=== PATIENT | female | born 1970 | race Two or more races ===

== ENCOUNTER 2019-04-15 06:46 | Emergency (ER) | payer OTHER ==
[~2019-04-15] VITALS: Ht 160 cm; Wt 72.6 kg
== END 2019-04-15 11:11 | disposition home or self-care (01) ==
LOC: ER 06:46
DX: B34.9 Viral infection, unspecified (principal); R05 Cough

== ENCOUNTER 2019-11-29 20:49 | Emergency (ER) | payer OTHER ==
[~2019-11-29] VITALS: Ht 160 cm; Wt 73.0 kg
== END 2019-11-29 22:09 | disposition home or self-care (01) ==
LOC: ER 20:49
DX: K00.0 Anodontia (principal); K08.89 Other specified disorders of teeth and supporting structures

== ENCOUNTER 2020-01-14 15:57 | Emergency (ER) | payer OTHER ==
[~2020-01-14] VITALS: Ht 160 cm; Wt 73.9 kg
[2020-01-14] MEDS ORDERED: DRISTAN15 ML (16:34)
== END 2020-01-14 19:11 | disposition home or self-care (01) ==
LOC: ER 15:57
DX: J45.998 Other asthma (principal)

== ENCOUNTER → 2020-03-16 | Emergency (ER) | payer OTHER ==
[~2020-03-16] VITALS: Ht 160 cm; Wt 72.6 kg
[~2020-03-16] MED LIST: DRISTAN15 ML
== END | disposition left against medical advice (07) ==
LOC: ER 09:56
DX: J30.89 Other allergic rhinitis (principal)

== ENCOUNTER 2020-05-19 02:14 | Emergency (ER) | payer OTHER ==
[~2020-05-19] VITALS: Ht 160 cm; Wt 72.6 kg
[2020-05-19] MEDS ORDERED: FLONASE ALLERG9.9 ML NASAL (05:57)
[2020-05-19] MEDS ORDERED: MUCUS RELIEF C200 MG PO (05:57)
== END 2020-05-19 06:27 | disposition home or self-care (01) ==
LOC: ER 02:14
DX: J30.89 Other allergic rhinitis (principal); J06.9 Acute upper respiratory infection, unspecified; Z03.818 Encounter for observation for suspected exposure to other biological agents ruled out

== ENCOUNTER 2020-06-17 19:51 | Emergency (ER) | payer OTHER ==
[~2020-06-17] VITALS: Ht 160 cm; Wt 70.3 kg
[~2020-06-17 19:51] MED LIST changes: +FLONASE ALLERG9.9 ML NASAL; +MUCUS RELIEF C200 MG PO
== END 2020-06-17 22:44 | disposition home or self-care (01) ==
LOC: ER 19:51
DX: U07.1 COVID-19 (principal); J12.89 Other viral pneumonia; B33.8 Other specified viral diseases

== ENCOUNTER 2020-11-17 08:18 | Emergency (ER) | payer OTHER ==
[~2020-11-17] VITALS: Ht 160 cm; Wt 72.6 kg
== END 2020-11-17 09:40 | disposition home or self-care (01) ==
LOC: ER 08:18
DX: J00 Acute nasopharyngitis [common cold] (principal)

== ENCOUNTER 2021-02-03 08:54 | Emergency (ER) | payer OTHER ==
[~2021-02-03] VITALS: Ht 160 cm; Wt 73.9 kg
[2021-02-03] MEDS ORDERED: ALLEGRA ALLERG180 MG PO (13:11)
[2021-02-03] MEDS ORDERED: ZITHROMAX TRI-500 MG PO (13:11)
== END 2021-02-03 13:12 | disposition home or self-care (01) ==
LOC: ER 08:54
DX: B34.9 Viral infection, unspecified (principal); Z03.818 Encounter for observation for suspected exposure to other biological agents ruled out

== ENCOUNTER 2021-04-24 18:36 | Emergency (ER) | payer OTHER ==
[~2021-04-24] VITALS: Ht 160 cm; Wt 72.6 kg
[~2021-04-24 18:36] MED LIST changes: +ALLEGRA ALLERG180 MG PO; +ZITHROMAX TRI-500 MG PO
[2021-04-24] MEDS ORDERED: FLONASE ALLERG9.9 ML NASAL (20:33)
[2021-04-24] MEDS ORDERED: ZYRTEC10 MG PO (20:33)
[2021-04-24] MEDS ORDERED: MEDROLPACK PO (20:33)
== END 2021-04-24 20:58 | disposition home or self-care (01) ==
LOC: ER 18:36
DX: J01.90 Acute sinusitis, unspecified (principal)

== ENCOUNTER 2021-05-26 03:14 | Emergency (ER) | payer OTHER ==
[~2021-05-26] VITALS: Ht 160 cm; Wt 72.6 kg
[~2021-05-26 03:14] MED LIST changes: +MEDROLPACK PO; +ZYRTEC10 MG PO
[2021-05-26] MEDS ORDERED: FLONASE16 GM NASAL (04:26)
[2021-05-26] MEDS ORDERED: SINGULAIR 10MG10 MG PO (04:26)
[2021-05-26] MEDS ORDERED: ZYNCOF 20-400120 ML PO (04:45)
== END 2021-05-26 04:51 ==
LOC: ER 03:14
DX: R09.81 Nasal congestion (principal)

== ENCOUNTER 2021-10-22 12:57 | Emergency (ER) | payer OTHER ==
[~2021-10-22] VITALS: Ht 160 cm; Wt 76.2 kg
[~2021-10-22 12:57] MED LIST changes: +FLONASE16 GM NASAL; +SINGULAIR 10MG10 MG PO; +ZYNCOF 20-400120 ML PO
[2021-10-22] MEDS ORDERED: ZITHROMAX500 MG PO (15:09)
== END 2021-10-22 15:25 | disposition home or self-care (01) ==
LOC: ER 12:57
DX: J32.9 Chronic sinusitis, unspecified (principal); Z88.2 Allergy status to sulfonamides; Z91.013 Allergy to seafood

== ENCOUNTER 2021-12-04 13:49 | Emergency (ER) | payer OTHER ==
[~2021-12-04] VITALS: Ht 160 cm; Wt 72.6 kg
[~2021-12-04 13:49] MED LIST changes: +ZITHROMAX500 MG PO
[2021-12-04] MEDS ORDERED: DRISTAN (14:03)
[2021-12-04] MEDS ORDERED: MEDROLPACK PO (15:01)
== END 2021-12-04 15:03 | disposition home or self-care (01) ==
LOC: ER 13:49
DX: J32.9 Chronic sinusitis, unspecified (principal); Z88.2 Allergy status to sulfonamides; Z91.013 Allergy to seafood

== ENCOUNTER 2022-05-09 09:23 | Emergency (ER) | payer OTHER ==
[~2022-05-09] VITALS: Ht 160 cm; Wt 72.6 kg
[~2022-05-09 09:23] MED LIST changes: +DRISTAN
== END 2022-05-09 13:48 ==
LOC: ER 09:23
DX: B34.9 Viral infection, unspecified (principal); J30.9 Allergic rhinitis, unspecified; Z88.2 Allergy status to sulfonamides; Z91.013 Allergy to seafood

== ENCOUNTER 2022-08-27 12:51 | Emergency (ER) | payer OTHER ==
[~2022-08-27] VITALS: Ht 160 cm; Wt 72.6 kg
== END 2022-08-27 17:50 | disposition home or self-care (01) ==
LOC: ER 12:51
DX: L03.211 Cellulitis of face (principal); W57.XXXA Bitten or stung by nonvenomous insect and other nonvenomous arthropods, initial encounter; Y93.9 Activity, unspecified; Y92.9 Unspecified place or not applicable

== ENCOUNTER 2023-04-25 07:51 | Emergency (ER) | payer OTHER ==
[~2023-04-25] VITALS: Ht 160 cm; Wt 72.6 kg
== END 2023-04-25 08:37 | disposition home or self-care (01) ==
LOC: ER 07:51
DX: J32.9 Chronic sinusitis, unspecified (principal); Z88.2 Allergy status to sulfonamides; Z91.013 Allergy to seafood

== ENCOUNTER 2023-05-30 06:34 | Emergency (ER) | payer OTHER ==
[~2023-05-30] VITALS: Ht 160 cm; Wt 72.6 kg
[2023-05-30 09:59] LABS: URINE APPEARANCE Cloudy; URINE BILIRRUBIN Negative (NEGATIVE); URINE BLOOD Trace; URINE GLUCOSE Negative (NEGATIVE); URINE LEUKOCYTE Large; URINE NITRATE Negative; URINE PROTEIN Negative (NEGATIVE); URINE UROBILINOGEN 0.2 E.U./dl
[2023-05-30 10:02] LABS: URINE BACTERIA 1424.9 uL (0.0-1933); URINE EPITHELIAL CELLS 55.3 uL (0.0-38.8); URINE RBC 3.1 uL (0.0-20.8); URINE WBC 474.7 uL (0.0-23.2)
[2023-05-30 12:00] LABS: URINE MUCUS SCANT
[2023-05-30 12:01] LABS: URINE CRYSTALS NEGATIVE /HPF; URINE YEAST NEGATIVE /hpf
[2023-05-30] MEDS ORDERED: VALTREX1000 MG PO (12:54)
== END 2023-05-30 13:13 | disposition home or self-care (01) ==
LOC: ER 06:34
PROVIDERS: Surgery
DX: A60.09 Herpesviral infection of other urogenital tract (principal); Z88.2 Allergy status to sulfonamides; Z91.013 Allergy to seafood

== ENCOUNTER 2023-07-15 16:13 | Emergency (ER) | payer OTHER ==
[~2023-07-15] VITALS: Ht 160 cm; Wt 71.2 kg
[~2023-07-15 16:13] MED LIST changes: +VALTREX1000 MG PO
[2023-07-15 18:43] LABS: HEMATOCRIT 39.1 % (36.0-45.00); MEAN CELL VOLUME 89.8 fL (80.00-100.00); MEAN CORPUSCULAR HEMOGLOBIN 29.9 pg (27.00-32.0); MEAN CORPUSCULAR HGB CONC 33.3 g/dl (32.0-36.0); PLATELET COUNT 316 K/uL (150-450); RED BLOOD COUNT 4.36 M/uL (4.00-6.00); RED CELL DISTRIBUTION WIDTH 13.7 % (11.5-14.5)
[2023-07-15 19:14] LABS: CALCIUM 9.6 mg/dL (8.5-10.1); CREATININE SERUM 0.79 mg/dL (0.55-1.02); GFR 76.13; POTASSIUM 4.12 mEq/L (3.5-5.1)
== END 2023-07-15 20:32 | disposition home or self-care (01) ==
LOC: ER 16:13
PROVIDERS: General Practice
DX: I88.9 Nonspecific lymphadenitis, unspecified (principal); Z20.822 Contact with and (suspected) exposure to COVID-19; Z88.2 Allergy status to sulfonamides; Z91.013 Allergy to seafood

== ENCOUNTER 2023-07-18 08:04 | Emergency (ER) | payer OTHER ==
[~2023-07-18] VITALS: Ht 160 cm; Wt 71.2 kg
== END 2023-07-18 10:46 | disposition home or self-care (01) ==
LOC: ER 08:05
DX: K11.20 Sialoadenitis, unspecified (principal); R59.0 Localized enlarged lymph nodes; Z88.2 Allergy status to sulfonamides; Z91.013 Allergy to seafood

== ENCOUNTER 2024-06-18 06:25 | Emergency (ER) | payer OTHER ==
[~2024-06-18] VITALS: Ht 160 cm; Wt 72.6 kg
[2024-06-18] MEDS ORDERED: KETOROLAC TROMETHAMINE 60 MG VIAL IM ONE (08:30)
[2024-06-18] MEDS ORDERED: TAMSULOSIN HCL 0.4 MG CAP PO ONE (08:30)
[2024-06-18] MEDS ORDERED: ORPHENADRINE CITRATE 30 MG/ML AMPUL IM ONE (08:30)
[2024-06-18] MEDS ORDERED: CEFTRIAXONE SODIUM 1,000 MG VIAL IM ONE (08:30)
[2024-06-18 09:16] LABS: HEMATOCRIT 41.9 % (36.0-45.00); HEMOGLOBIN 13.8 g/dL (12.0-15.00); MEAN CELL VOLUME 92.1 fL (80.00-100.00); MEAN CORPUSCULAR HEMOGLOBIN 30.4 pg (27.00-32.0); PLATELET COUNT 314 K/uL (150-450); RED BLOOD COUNT 4.54 M/uL (4.00-6.00); RED CELL DISTRIBUTION WIDTH 13.3 % (11.5-14.5)
[2024-06-18 09:40] LABS: URINE APPEARANCE Clear; URINE BILIRRUBIN Negative (NEGATIVE); URINE BLOOD Negative; URINE COLOR Yellow; URINE GLUCOSE Negative (NEGATIVE); URINE KETONE Negative (NEGATIVE); URINE LEUKOCYTE Trace; URINE NITRATE Negative; URINE PROTEIN Negative (NEGATIVE); URINE UROBILINOGEN 0.2 E.U./dl
[2024-06-18 09:43] LABS: URINE BACTERIA 722.1 uL (0.0-1933); URINE EPITHELIAL CELLS 17.5 uL (0.0-38.8); URINE WBC 22.6 uL (0.0-23.2)
[2024-06-18 10:00] LABS: URINE RBC 0.5 uL (0.0-20.8)
[2024-06-18] MEDS ORDERED: NITROFURANTOIN100 MG PO (10:11)
[2024-06-18] MEDS ORDERED: PEPCID AC20 MG PO (10:11)
[2024-06-18] MEDS ORDERED: NORFLEX100MG PO (10:11)
[2024-06-18] MEDS ORDERED: KETO10TA2 PO (10:11)
[2024-06-18] MEDS ORDERED: TAMS0.4C PO (10:11)
== END 2024-06-18 10:15 | disposition home or self-care (01) ==
LOC: ER 06:28
PROVIDERS: General Practice
DX: N39.0 Urinary tract infection, site not specified (principal); N20.0 Calculus of kidney; I10 Essential (primary) hypertension; Z88.2 Allergy status to sulfonamides; Z91.013 Allergy to seafood